=== PATIENT | male | born 1995 | race Caucasian/White ===

== ENCOUNTER 2017-09-12 13:57 | Emergency (ER) | payer OTHER ==
--- NOTE | 2017-09-12 14:41 | C.PDOC ---
History Of Present Illness <Marky Love - Last Filed: 09/12/17 16:21> <Howie Perez - Last Filed: 09/12/17 18:50> 22 y/o M with no pmhx who is presenting with lower quadrant abdominal pain x 3days with associated nausea/vomiting. He states that this started 3 days ago and was following a meal at dinner consisting of rice and salami. He has had multiple bouts of vomiting over the last three days. No diarrhea or problems urinating. He has not taken anything at home. His last bout of vomiting was 11am this morning and he states that there was a small amount of blood in his vomit. He has not had fevers or chills. Of note this patient has a hx of appendicitis that was complicated by perforation. He had surgical intervention in [facility]. pmhx- none pshx- appendectomy 5 years ago meds- none allergies- nkda fam hx- none soc hx- drinks from time to time, no smoking/drugs (Marky Love) History Per: Patient Onset/Duration Of Symptoms: Days (3) Location Of Pain/Discomfort: RLQ, LLQ Quality Of Discomfort: Sharp, Pressure Associated Symptoms: Nausea, Vomiting. denies: Fever, Chills, Diarrhea, Urinary Symptoms <Marky Love - Last Filed: 09/12/17 16:21> <Howie Perez - Last Filed: 09/12/17 18:50> Time Seen by Provider: 09/12/17 14:13 Chief Complaint (Nursing): Abdominal Pain Past Medical History - Medical History PMH: No Chronic Diseases Surgical History: Appendectomy (5 yrs ago) Family History: States: Unknown Family Hx - Social History Hx Tobacco Use: No Hx Alcohol Use: No Hx Substance Use: No - Immunization History Hx Tetanus Toxoid Vaccination: Yes Hx Influenza Vaccination: No Hx Pneumococcal Vaccination: No <Marky Love - Last Filed: 09/12/17 16:21> Vital Signs: Last Vital Signs Temp 97.9 F 09/12/17 16:22 Pulse 100 H 09/12/17 16:22 Resp 17 09/12/17 16:22 BP 107/70 09/12/17 16:22 Pulse Ox 97 09/12/17 16:23 Review Of Systems Constitutional: Negative for: Fever, Chills Cardiovascular: Negative for: Chest Pain, Palpitations Respiratory: Negative for: Cough, Shortness of Breath Gastrointestinal: Positive for: Nausea, Vomiting, Hematemesis. Negative for: Diarrhea, Constipation, Hematochezia Neurological: Negative for: Weakness, Numbness <Marky Love - Last Filed: 09/12/17 16:21> Physical Exam - Physical Exam Appears: No Acute Distress Skin: Warm, Dry Head: Atraumatic, Normacephalic Oral Mucosa: Dry Cardiovascular: Rhythm Regular Respiratory: Normal Breath Sounds Gastrointestinal/Abdominal: Bowel Sounds (hyperactive), Tenderness (b/l lower quads), Distention (mild), Other (scar on abdomen, central ) Neurological/Psych: Oriented x3, Normal Speech <Marky Love - Last Filed: 09/12/17 16:21> ED Course And Treatment - Laboratory Results Result Diagrams: 09/12/17 15:05 09/12/17 15:05 O2 Sat by Pulse Oximetry: 97 <Marky Love - Last Filed: 09/12/17 16:21> - Laboratory Results Result Diagrams: 09/12/17 15:05 09/12/17 15:05 <Howie Perez - Last Filed: 09/12/17 18:50> Medical Decision Making <Marky Love - Last Filed: 09/12/17 16:21> <Howie Perez - Last Filed: 09/12/17 18:50> Medical Decision Making: Patient was given zofran for nausea and vomiting which did control these symptoms. Obstructive series was completed to evaluate for any blockage. He was given pepcid for the vomiting and toradol for pain control. Patient's symptoms resolved with the medications however the obstructive series was suspicious for obstruction and lung infiltrates. (Marky Love) Disposition - Disposition Disposition Time: 20:00 <Marky Love - Last Filed: 09/12/17 16:21> Discussed With : Ramez lAfaro - Disposition Disposition Time: 19:00 <Howie Perez - Last Filed: 09/12/17 18:50> - Disposition Condition: STABLE Forms: [employer] (Croatian) - Clinical Impression Clinical Impression: Abdominal pain Physician Patient Turnover Patient Signed Over To: Ramez Alfaro Handoff Comments: pending ct scan of abd/pelvis, reevaluation and disposition <Howie Perez - Last Filed: 09/12/17 18:50>
[2017-09-12] MEDS ORDERED: Sodium Chloride 0.9% 1,000 ML IV ONE (14:47)
[2017-09-12 15:08] LABS: BASO % 0.4 % (0.0-2.0); EOS % 0.5 % (0.0-4.0); HEMOGLOBIN 13.4 g/dL (12.0-18.0); LYMPH # 0.7 K/uL (1.0-4.3); MEAN CELL VOLUME 88.6 fL (80.0-94.0); MEAN CORPUSCULAR HGB CONC 33.8 g/dL (33.0-37.0); MEAN PLATELET VOLUME 9.9 fL (7.2-11.7); MONO # 0.2 K/uL (0.0-0.8); MONO % 4.1 % (0.0-10.0); NEUT # 5.1 K/uL (1.8-7.0); NRBC % 0.1 % (0.0-2.0); RBC 4.48 Mil/uL (4.40-5.90); RED CELL DISTRIBUTION WIDTH 16.1 % (11.5-14.5); WHITE BLOOD COUNT 6.1 K/uL (4.8-10.8)
[2017-09-12] MEDS ORDERED: Sodium Chloride 0.9% 1,000 ML ONE (15:08)
[2017-09-12 15:24] LABS: SQUAMOUS EPITHIAL < 1 /hpf (0-5); URINE BILIRUBIN NEGATIVE (NEGATIVE); URINE BLOOD NEGATIVE (NEGATIVE); URINE CLARITY Clear (Clear); URINE COLOR Yellow (YELLOW); URINE GLUCOSE (UA) NORMAL (Normal); URINE LEUKOCYTE ESTERASE NEG Leu/uL (Negative); URINE NITRATE NEGATIVE (NEGATIVE); URINE PROTEIN 1+ mg/dL (NEGATIVE)
[2017-09-12 15:26] LABS: ALB/GLOB RATIO 0.9 (1.0-2.1); ALBUMIN 3.8 g/dL (3.5-5.0); ALT/SGPT 35 U/L (21-72); AST/SGOT 38 U/L (17-59); BLOOD UREA NITROGEN 10 mg/dL (9-20); CALCIUM 9.3 mg/dl (8.6-10.4); GFR AFRICAN-AMERICAN > 60; GFR NON-AFRICAN AMERICAN > 60
--- NOTE | 2017-09-12 15:52 | RAD ---
PROCEDURE: Radiographs of the chest and abdomen (obstructive series) HISTORY: nausea/vomiting COMPARISON: No prior. TECHNIQUE: AP radiograph of the chest, with upright and supine radiographs of the abdomen. FINDINGS: CHEST: Lungs: The lungs are well inflated. There is ill-defined airspace disease in the right lower lobe and small right pleural effusion. The left lung is well inflated and clear. Cardiovascular: Normal size heart. No pulmonary vascular congestion. Pleura: No left pleural fluid. No pneumothorax. Other findings: None. ABDOMEN AND PELVIS: Bowel: There is mild gaseous distension of the small bowel loops with differential air-fluid levels. There is gas in the rectum. Free air: None. Bones: Unremarkable. Other findings: None. IMPRESSION: Findings are may represent developing acute small bowel obstruction or nonspecific enteritis. Suspect right lower lobe pneumonia and small right pleural effusion.
[2017-09-12 16:23] VITALS: TEMP 97.9
[2017-09-12] MEDS ORDERED: Iodixanol 320 MG/ML 100 ML BOTTLE IV ONE (17:33)
--- NOTE | 2017-09-12 20:14 | CT ---
EXAM: CT Abdomen and Pelvis With Intravenous Contrast EXAM DATE/TIME: 09/12/2017 4:20 PM CLINICAL HISTORY: 22 years old, male; Pain; Abdominal pain; Generalized; Additional info: Abd. Pain TECHNIQUE: Axial computed tomography images of the abdomen and pelvis with intravenous contrast. All CT scans at this facility use one or more dose reduction techniques, viz.: automated exposure control; ma/kV adjustment per patient size (including targeted exams where dose is matched to indication; i.e. head); or iterative reconstruction technique. Coronal and sagittal reformatted images were created and reviewed. CONTRAST: 100 mL of visipaque 320 administered intravenously. COMPARISON: There are no prior studies for comparison. FINDINGS: Lower thorax: The heart is mildly enlarged. There is partial calcification of the pericardium. There is reflux of contrast into. There is a a right pleural effusion. There is right middle and lower lobe airspace disease. There is no focal infiltrate at the left base. There is mild prominence of interstitial markings at the left base. There is a vascular malformation in the inferior anterior left lower lobe. ABDOMEN: Liver: There is fatty infiltration of the liver. Liver appears mildly enlarged with prominence of the left and caudate lobes. Gallbladder and bile ducts: Gallbladder not visualized. Distal common duct is normal in caliber. Pancreas: Pancreas is mildly atrophic. Spleen: unremarkable Adrenals: unremarkable Kidneys and ureters: unremarkable Stomach and bowel: Stomach is almost empty. Rotation is normal. Small bowel is asymmetrically distended with fluid and air. There are abnormal loops in the upper abdomen with wall and fold thickening. There are mildly dilated small bowel loops in mid abdomen. There are multiple fluid-filled distal small bowel loops in the lower abdomen. Ileocecal region is unremarkable. Colon is incompletely distended which limits evaluation. Appendix: See stomach and bowel PELVIS: Bladder: Urinary bladder is partially distended. Reproductive: Seminal vesicles and prostate are unremarkable. ABDOMEN and PELVIS: Free fluid in the abdomen and pelvis. Bones/joints: There are no acute osseous abnormalities. Soft tissues: There are multiple prominent inguinal nodes and or inguinal collateral vessels. Vasculature: Aorta is normal in caliber. Inferior vena cava is dilated. There is prominence of the iliac veins. There are multiple varices is in the upper abdomen. There are small varices in the posterior mediastinum Lymph nodes: There is no para-aortic adenopathy. There are shotty mesenteric nodes. 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
[2017-09-12 21:40] VITALS: BP 99/59; PULSE 118; RESP 18; O2SAT 99
--- NOTE | 2017-09-14 00:24 | CARD ---
APPROVED REPORT EKG Measurement Heart [id number] <Conclusion> Atrial fibrillation with rapid ventricular response Nonspecific T wave abnormality Abnormal ECG
== END 2017-09-12 22:30 | disposition left against medical advice (07) ==
LOC: C.ER 13:57
DX: R10.30 Lower abdominal pain, unspecified (principal)
CPT/HCPCS: 74022; 74177; 80053; 81001; 85025; 87040; 96361; 96374; 96375; 99285; J1885; J2405; J7040; Q9967